=== PATIENT | female | born 1960 | race Two or more races ===

== ENCOUNTER 2025-02-28 06:40 | Day surgery (SDC) | payer MEDICAID, SELFPAY ==
[2025-02-28] VITALS (9 sets, daily range): BP systolic 110–148; BP diastolic 68–97; PULSE 67–79; RESP 13–22; TEMP 36.2–36.8; O2SAT 93–100; BMI 36.6
[2025-02-28] MEDS: SODIUM CHLORIDE 0.9% 500 ML 500 ML 20 ML IV (07:42)
[2025-02-28] MEDS: DiphenhydrAMINE INJ 50 MG/ML VIAL 25 MG IVP (07:43)
[2025-02-28] MEDS: MIDAZOLAM INJ 1 MG/ML VIAL 2 ML (ASD USE ONLY) 2 MG IVP (07:46)
[2025-02-28] MEDS: fentaNYL CIT INJ 50 mCg/ML AMP 2ML (ASD USE ONLY) IVP (07:48)
== END 2025-02-28 09:00 | disposition home or self-care (01) ==
PROVIDERS: PCP Nurse Practitioner Family; Referring Provider Surgery; Visit Provider Surgery
PROC: 0DBE8ZX Excision of Large Intestine, Via Natural or Artificial Opening Endoscopic, Diagnostic (ICD-10-PCS; CPT 45380; principal; 2025-02-28 08:00)
DX: Z12.11 Encounter for screening for malignant neoplasm of colon (principal); K63.5 Polyp of colon; K64.1 Second degree hemorrhoids; K57.30 Diverticulosis of large intestine without perforation or abscess without bleeding
CPT/HCPCS: 45380; J1200; J2250; J3010; J7040